=== PATIENT | male | born 1995 | race Two or more races ===

== ENCOUNTER 2024-07-02 13:56 | Emergency (ER) | payer OTHER ==
[~2024-07-02] VITALS: Ht 170.2 cm; Wt 75.4 kg
--- NOTE | 2024-07-02 14:37 | ED.PDOC ---
Musculoskeletal HPI Comments 29y M who presents to the ED for chief complaint of lower extremity pain. 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 Pt states over the past few days, he has noticed increased LLE swelling and pain. Pt states the pain and swelling has gotten worse and came to the ED. Pt in the ED, has noted LLE pain and swelling. Pt denies shortness of breath, chest pain, headache, dizziness, fever, cough, chills, nausea, diaphoresis, or palpitations. Pt denies any other symptoms at this time. Time Seen by MD: 14:32 Reviewed Notes: Medications, Allergies Information Source: Patient Mode of Arrival: Ambulatory Brought in by: self Location: Left Extremity Location: Leg Timing: Days Prehospital treatment: None Severity: Moderate Able to Move Extremity: Yes Bear Weight: Fully Pain: Moderate Mechanism: Spontaneous Circumstances: Spontaneous Onset of Symptoms: Spontaneous Symptoms: Swelling, Pain DVT Risk Factors: DVT Last Tetanus: Unknown Associated signs and symptoms: Leg pain Past Medical History Past Medical History (Other): HIV,DVT Surgical History: Denies all surgeries Family History Family History: Reviewed,noncontributory to illness Social History Smoker: Non-Smoker Alcohol: Denies ETOH Use Drugs: Denies Drug Use Lives In: Home Constitutional: denies: chills, diaphoresis, fatigue, fever, malaise, sweats, weakness, others EENTM: denies: blurred vision, double vision, ear bleeding, ear discharge, ear drainage, ear pain, ear ringing, eye pain, eye redness, hearing loss, mouth pain, mouth swelling, nasal discharge, nose bleeding, nose congestion, nose pain, photophobia, tearing, throat pain, throat swelling, voice changes, others Respiratory: denies: cough, hemoptysis, orthopnea, SOB at rest, shortness of breath, SOB with excertion, stridor, wheezing, others Cardiovascular: denies: chest pain, dizzy spells, diaphoresis, Dyspnea on exertion, edema, irregular heart beat, left arm pain, lightheadedness, palpitations, PND, syncope, others Gastrointestinal: denies: abdomen distended, abdominal pain, blood streaked bowels, constipated, diarrhea, dysphagia, difficulty swallowing, hematemesis, melena, nausea, poor appetite, poor fluid intake, rectal bleeding, rectal pain, vomiting, others Genitourinary: denies: burning, dysuria, flank pain, frequency, hematuria, incontinence, penile discharge, penile sore, pain, testicle pain, testicle swelling, urgency, others Neurological: denies: dizziness, fainting, headache, left sided numbness, left sided weakness, numbness, paresthesia, pre-existing deficit, right sided numbness, right sided weakness, seizure, speech problems, tingling, tremors, weakness, others Musculoskeletal: reports: joint pain (LLE), joint swelling (LLE); denies: back pain, gout, muscle pain, muscle stiffness, neck pain, others Integumetry: denies: bruises, change in color, change in hair/nails, dryness, laceration, lesions, lumps, rash, wounds, others Allergic/Immunocompromised: denies: Difficulty Healing, Frequent Infections, Hives, Itching, others Hematologic/Lymphatic: denies: anemia, blood clots, easy bleeding, easy bruising, swollen glands, others Endocrine: denies: excessive hunger, excessive sweating, excessive thirst, excessive urination, flushing, intolerance to cold, intolerance to heat, unexplained weight gain, unexplained weight loss, others Psychiatric: denies: anxiety, bipolar disorder, depression, hopeless, panic disorder, schizophrenia, sleepless, suicidal, others All Other Systems: Reviewed and Negative Was a procedure done? Was a procedure done?: No Differential Diagnosis EXT Differential Diagnosis: Cellulitis, Deep Vein Thrombosis, Septic Time of 1ST Reevaluation: 15:10 Reevaluation 1ST: Unchanged Patient Education/Counseling: Diagnosis, Treatment Family Education/Counseling: No Family Present Additional Information -Reviewed patient's previous visit(s): - The following tests were ordered, and results were reviewed by me:Lt lower DVT - Additional information was gathered from interviewing the following independent Historian: patient - I reviewed and agreed with the following test results read by other provider: radiologist - I discussed treatments and results with medical personnel and: patient Comprehensive systems review obtained and negative except for what is stated in the HPI. Critical Care Note Critical Care Time?: No Stability Stability form required: No Heart Score Heart Score: Heart Score Response (Comments) Value History N/A 0 EKG N/A 0 Age N/A 0 Risk Factors N/A 0 Troponin N/A 0 Total 0 I personally scribed for ANGELIQUE MUNSON MD ([email or web address]) on 07/02/24 at 14:37. Electronically submitted by Teresa Macedo ([email or web address]). ANGELIQUE MUNSON MD Jul 02, 2024 14:37
[2024-07-02 15:00] VITALS: BP 114/52; PULSE 129; RESP 18; TEMP 98.6; O2SAT 97
--- NOTE | 2024-07-02 17:43 | DVH ---
US LT LOWER DVT US 07/02/2024 02:52 PM Clinical History: left leg swelling Comparison: None Technique: Duplex Doppler evaluation of the deep venous system of the left lower extremity from the common femor al vein to the popliteal vein including color Doppler and spectral/pulsed waveform analysis was perfo rmed. Findings: Nonocclusive thrombus noted in the common femoral, throughout the femoral popliteal veins. The tibiop eroneal trunk and posterior tibial vein are patent. The greater saphenous junction is patent.. Mode rate subcutaneous edema noted in the calf. Impression: 1. Nonocclusive DVT involving the left common femoral, femoral and popliteal veins. Findings discussed with ANGELIQUE MUNSON at 07/02/2024 03:58 PM, and acknowledged receipt and understand ing of the findings. ..
== END 2024-07-02 18:35 | disposition home or self-care (01) ==
LOC: ER 13:56
DX: I82.412 Acute embolism and thrombosis of left femoral vein (principal); M79.662 Pain in left lower leg; Z86.718 Personal history of other venous thrombosis and embolism; Z79.01 Long term (current) use of anticoagulants
CPT/HCPCS: 93971